=== PATIENT | male | born 1980 ===

== ENCOUNTER 2024-06-03 14:35 | Inpatient (IN) | payer MEDICARE, OTHER ==
[~2024-06-03] VITALS: Ht 175.3 cm; Wt 62.0 kg
[2024-06-03] MEDS ORDERED: DiphenhydrAMINE HCl 50 MG Cap PO PRN (19:35)
[2024-06-03] MEDS ORDERED: Calcium Carbonate 500 MG Tab Chew PO PRN (19:35)
[2024-06-03] MEDS ORDERED: Aluminum Hydroxide 320MG/5ML 473 ML PO PRN (19:35)
[2024-06-03] MEDS ORDERED: DiphenhydrAMINE HCl 50 MG/ML 1ML Vial IM PRN (19:35)
[2024-06-03] MEDS ORDERED: Acetaminophen 325 MG TABLET PO PRN (19:35)
[2024-06-03] MEDS ORDERED: Haloperidol 5 MG Tab PO PRN (19:40)
[2024-06-03] MEDS ORDERED: Ibuprofen 600 MG Tab PO PRN (19:40)
[2024-06-03] MEDS ORDERED: LORazepam 2 MG/ML 1ML Injection IM PRN (19:40)
[2024-06-03] MEDS ORDERED: LORazepam 2 MG Tab PO PRN (19:40)
[2024-06-03] MEDS ORDERED: Haloperidol Lactate Inj. 5 MG/ML Injection IM PRN (19:40)
[2024-06-03] MEDS ORDERED: Melatonin 3 MG Tab PO PRN (19:45)
[2024-06-03] MEDS ORDERED: TraZODone HCl 50 MG Tab PO PRN (19:45)
[2024-06-03] MEDS ORDERED: OLANZapine ODT 10 MG Tab MM PRN (19:45)
[2024-06-03] MEDS ORDERED: Polyethylene Glycol 3350 17 gm PO PRN (19:45)
[2024-06-03] MEDS ORDERED: OLANZapine 10 MG Tab PO SCH (21:00)
[2024-06-04] MEDS ORDERED: Multivitamins 1 Tab PO SCH (09:00)
[2024-06-04 12:45] VITALS: BP 124/84
--- NOTE | 2024-06-04 13:16 | NUR ---
ADMISSION NOTE: PT TO UNIT FROM [facility] IN [place] AT 1142. COOPERATIVE WITH ALL INSTRUCTIONS. NOTED SIGNIFICANT SKIN ABRASIONS AND SCRATCHES FROM BEING IN BLACKBERRY BUSHES PRIOR TO ADMIT. PT STATES HE HAS HISTORY OF TBI AND HAS HAD MENTAL HEALTH SYMPTOMS EVER SINCE. STATES HISTORY OF FREQUENT ADMITS TO BEHAVIORAL HEALTH UNITS FOR PSYCHOTIC BREAKS OR TO SEEK TREATMENT FOR "THE VOICES IN MY HEAD." PT STATES HE HAS MULTIPLE FELONY CHARGES PENDING AND THAT HE IS SUPPOSED TO GO TO [facility]P ONCE HE LEAVES HERE. HE IS UNABLE TO CLARIFY WHAT THE CHARGES WOULD BE RELATED TO. RECORDS FROM [place] STATE THERE ARE NO CHARGES PENDING AND THAT THESE THOUGHTS ARE PART OF HIS PARANOIA/DELUSIONS. PT STATES RECENT STRESSORS INCLUDE FINDING OUT HIS GIRLFRIEND IS "ACTUALLY WITH MY BROTHER AND HAS BEEN FOR 6 YEARS." STATES THE VOICES TOLD HIM TO KILL HIMSELF AND "DARED ME TO DO IT. THEY SAID I WOULDN'T SO I SHOWED THEM I COULD." STATES HE ATTEMPTED TO SWALLOW A BOTTLE OF PILLS BUT VOMITED THEM BACK UP, THEN TRIED TO HANG SELF IN SHOWER BUT THE SHOWER BAR BROKE. HE THEN WENT TO BEDROOM TO HANG SELF IN CLOSET BUT HIS GIRLFRIEND FOUND HIM AND STOPPED HIM. HE SAID HE HAS NO DESIRE TO KILL HIMSELF BUT THAT THE VOICES CONTINUALLY TELL HIM TO DO SO. STATES HE HEARS THE VOICES ALL DAY. ALSO C/O VISUAL HALLUCINATIONS AND SEES SHADOWS. "I CALL THEM THE SHADOW PEOPLE." FEELS PEOPLE TOUCHING HIM FREQUENTLY WHO AREN'T THERE WELL. PT STATES HE DRINKS 4-6 24 OZ BEERS PER DAY "BUT IT'S PROBABLY MORE THAN THAT MOST OF THE TIME. SLIGHT TREMORS NOTED. HR 100 DURING ASSESSMENT. DENIES ANY OTHER SIGNS OF WITHDRAWAL. VS EVALUATED. NO CURRENT PLANS FOR SELF HARM. DENIES ANY HOMICIDAL THOUGHTS. FOLLOWS ALL DIRECTIONS AND IS COOPERATIVE WITH STAFF. PLAN FOR 15 MIN CHECKS AND TO SUPPORT NEEDS.
[2024-06-04] MEDS ORDERED: HYDPAM50 PO (13:28)
[2024-06-04] MEDS ORDERED: OMEP20ER PO (13:29)
[2024-06-04] MEDS ORDERED: GABA300 PO (13:29)
[2024-06-04] MEDS ORDERED: DULO30 PO (13:30)
[2024-06-04] MEDS ORDERED: ABILIFY MYCITE5 M2 PO (13:30)
[2024-06-04] MEDS ORDERED: ONDA4 PO (13:40)
[2024-06-04] MEDS ORDERED: Ondansetron 4 MG SoluTab MM PRN (13:55)
[2024-06-04] MEDS ORDERED: HydrOXYzine Pamoate 50 MG Cap PO PRN (13:55)
[2024-06-04] MEDS ORDERED: ESOM20 PO (14:18)
[2024-06-04] MEDS ORDERED: Nicotine 21 MG PATCH TOP ONE (14:50)
[2024-06-04] MEDS ORDERED: ALBU90OI INH (15:26)
--- NOTE | 2024-06-04 15:27 | NUR ---
SPOKE WITH [facility] IN [place] TO RECONCILE MEDICATIONS. UPDATED LIST PER PHARMACY DISPENSING HISTORY. THEY STATED PT HAS NOT FILLED HIS PRESCRIPTIONS SINCE 02/19/25.
--- NOTE | 2024-06-04 16:56 | NUR ---
PT TO NURSES STATION. REQUESTED VISTARIL FOR ANXIETY AND IBUPROFEN FOR BACK PAIN. STATES THAT HE IS HAVING FEELINGS OF INCREASED ANXIETY R/T THOUGHTS OF WHAT HAS BEEN GOING ON IN HIS LIFE. PT MEDICATED PER EMAR.
--- NOTE | 2024-06-04 17:29 | NUR ---
SHIFT SUMMARY: PT HAS SETTLED ONTO UNIT WELL. COOPERATIVE WITH TREATMENT PLAN. HAS PARTICIPATED IN ACTIVITIES. PT SPENDS MAJORITY OF TIME IN HALLWAYS WALKING AND VISITING WITH STAFF. CONT TO C/O PAIN TO RIGHT LEG - CHRONIC ISSUE. TAKES IBUPROFEN, TYLENOL, AND GABAPENTIN FOR THIS AT HOME. PT STATES VISTARIL WORKED WELL FOR CONTROLLING ANXIETY EARLIER THIS SHIFT. SPOKE ON PHONE TO GIRLFRIEND - APPEARED AGITATED DURING CONVERSATION BUT DENIES THIS WHEN ASKED AFTER PHONE CALL. CONTINUE 15 MIN CHECKS AND FACILITATE THERAPEUTIC CONVERSATIONS.
[2024-06-04] MEDS ORDERED: Lidocaine 4% 1 Patch TOP SCH (20:10)
[2024-06-04 20:13] VITALS: BP 134/97
[2024-06-04] MEDS ORDERED: Gabapentin 400 MG Cap PO SCH (21:00)
--- NOTE | 2024-06-05 05:25 | NUR ---
SHIFT SUMMARY NO ACUTE EVENTS THIS SHIFT. PT AT START OF SHIFT PACING HALLWAYS, STATING, "MY BACK HURTS IF I SIT TOO LONG.". LIDOCAINE PATCH ORDERED AND PT HAS SLEPT/RESTED FOR REST OF NIGHT. PT DENIES SI, HI, AND VISUAL/TACTILE HALLUCINATIONS. CONFIRMS AUDITORY HALLUCINATIONS AND ALSO CONFIRMS THEY ARE COMMAND HALLUCINATIONS TELLING HIM TO "KILL MYSELF". PT CONFIRMS THAT HE KNOW'S THAT THEY AREN'T REAL AND SHOULDN'T LISTEN TO THEM, BUT ALSO STATED PREVIOUSLY THEY ARE THE CAUSE OF HIS PREVIOUS ATTEMPT.
[2024-06-05] MEDS ORDERED: Pantoprazole Sodium 40 MG Tab PO SCH (06:00)
[2024-06-05 07:22] VITALS: BP 121/79
[2024-06-05] MEDS ORDERED: Nicotine 21 MG PATCH TOP SCH (09:00)
[2024-06-05 09:33] LABS: Albumin, Blood 3.4 g/dL (3.4-5.0); Albumin/Globulin Ratio 0.9 (0.8-1.8); Bilirubin, Total 0.3 mg/dL (0.1-1.0); Bun/Creatinine Ratio 23.5 (12.0-20.0); Calcium, Blood 8.9 mg/dL (8.5-10.1); Creatinine, Blood 0.72 mg/dL (0.60-1.20); Globulin, Blood 3.6 g/dL (2.2-4.0); Potassium, Blood 4.2 mmol/L (3.5-5.5); Thyroid Stimulating Hormone 0.69 uIU/mL (0.360-4.800)
--- NOTE | 2024-06-05 11:19 | NUR ---
PHONE CONSULT WITH DR RICARDO PER ORDER - SHE INCREASED GABAPENTIN TO PTS REGULAR DOSE OF 900 MG TID AFTER HISTORY REVIEW AND RX REVIEW.
[2024-06-05] MEDS ORDERED: Gabapentin 300 MG Cap PO SCH (14:00)
--- NOTE | 2024-06-05 16:52 | NUR ---
SHIFT SUMMARY: PT DENIES HI BUT STATES VOICES CONTINUE TO TELL HIM TO KILL HIMSELF. HE IS ABLE TO DISTRACT HIMSELF FROM VOICES WITH ACTIVITIES. INCREASED GABAPENTIN DOSING IS HELPING PAIN TO LOW BACK AND LEG. PARTICIPATED IN ACTIVITIES TODAY. RESPONDS APPROPRIATELY TO REQUESTS AND IS ABLE TO HOLD APPROPRIATE CONVERSATIONS WITH STAFF. FREQUENT WALKS IN GARCIA FOR POSITION CHANGING RELATED TO BACK DISCOMFORT.
[2024-06-05 19:51] VITALS: BP 122/93
[2024-06-05] MEDS ORDERED: ChlordiazePOXIDE 25 MG Cap PO SCH (21:00)
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
[2024-06-06 07:20] LABS: Magnesium, Blood 2.1 mg/dL (1.6-2.4); Phosphorus, Blood 4.5 mg/dL (2.5-4.9)
[2024-06-06 07:23] LABS: CHOL/HDL RATIO 1.7; Cholesterol 176 mg/dL (50-200); HDL Cholesterol 104 mg/dL (>39); LDL/HDL RATIO 0.5; Low Density Lipoprotein Chol 49 mg/dL (0-110); Triglycerides 114 mg/dL (30-160); Very Low Density Lipoprot Chol 22 mg/dL (6-32)
[2024-06-06 07:55] VITALS: BP 114/78
[2024-06-06] MEDS ORDERED: Thiamine HCl 100 MG Tab PO SCH (09:00)
--- NOTE | 2024-06-06 14:44 | NUR ---
THIS RN REACHED OUT TO [facility] IN [place] [place] AT 1100 TO VERIFY GABAPENTIN PRESCRIPTION. PHARMACIST SAID THE PRESCRIPTION IS THREE 400 MG TABS. RN ASKED FOR CLAIM HISTORY TO BE FAXED TO [facility]. PHARMACIST VERBALIZED THAT HISTORY WOULD BE FAXED. FAX NOT RECEIVED AT THIS TIME. RN CALLED BACK AT 1440 DUE TO FAX NOT BEING RECEIVED. UNABLE TO REACH PHARMACIST AT THIS TIME.
--- NOTE | 2024-06-06 17:08 | NUR ---
SHIFT SUMMARY PT A/O X4 AND COOPERATIVE WITH PLAN OF CARE. HE DENIES SI AND HI BUT ENDORSES AH AND TH. AH COMMANDS PT TO "KILL HIMSELF" BUT HE IS ABLE TO IGNORE THEM AND OFTEN WALKS TO HELP WITH THIS. HE SAYS THAT SOMETIMES HE FEEL "SOMEONE TUGGING ON HIS FOOT" WHILE SLEEPING. PT MEDICATED WITH IBUPROFEN, TYLENOL, AND LIDOCAINE PATCH FOR PAIN. HE HAS PAIN TO R HIP AND KNEE. HE RECEIVED SCHEDULED GABAPENTIN FOR PAIN WELL. GABAPENTIN DOSE VERIFIED WITH [facility]. PT ALSO C/O ABSCESS ON HIS GUM. DENTAL HYGIENIST NOTIFIED AND RECOMMENDED ABX. HOSPITALIST MADE AWARE OF DENTIAL HYGIENIST RECOMMENDATION.
[2024-06-06 19:56] VITALS: BP 135/80
[2024-06-06] MEDS ORDERED: Lactobacil 2-S.Thermo-Bifido 1 1 Cap PO SCH (21:00)
[2024-06-06] MEDS ORDERED: ChlordiazePOXIDE 25 MG Cap PO SCH (21:00)
[2024-06-06] MEDS ORDERED: Amoxicillin/Clavulanate K 875 MG Tab PO SCH (21:00)
[2024-06-06] MEDS ORDERED: Gabapentin 400 MG Cap PO SCH (21:00)
--- NOTE | 2024-06-07 04:14 | NUR ---
SHIFT SUMMARY: PATIENT WAS PACING THE HALLWAY AT THE BEGINNING OF THE SHIFT. HE WAS PLEASANT AND COOPERATIVE WITH CARES. HE ANSWERED QUESTIONS IN A CALM AND LINEAR MANNER. HE DENIED THOUGHTS OF SUICIDAL IDEATION OR SELF HARMING. HE PARTICIPATED IN 2000 SNACK TIME AND WRAP UP GROUP IN THE DINING AREA. HE WAS COMPLIANT WITH MEDICATION ADMINISTRATION. HE REQUESTED AND WAS GIVEN TYLENOL, AND LATER IBUPROFEN AND TRAZODONE. HE WENT TO BED AFTER THESE REQUESTS, AND WAS NOTED TO BE RESTING QUIETLY WITH EYES CLOSED AND RESPIRATIONS CONFIRMED. CONTINUING TO MONITOR FOR SAFETY WITH Q15 MINUTE CHECKS.
[2024-06-07 08:04] VITALS: BP 124/89
[2024-06-07 08:21] LABS: Magnesium, Blood 2.2 mg/dL (1.6-2.4); Phosphorus, Blood 4.7 mg/dL (2.5-4.9)
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
--- NOTE | 2024-06-07 17:48 | NUR ---
PT REPORTED THAT HE WASN'T HONEST WITH STAFF AND PROVIDER THE LAST FEW DAYS ABOUT THE VOICES AND THEIR COMMANDS. HE REPORTS NOT KNOWING IF THE VOICES ARE REAL OR NOT. HE HAS BEEN VERY VISIBLE IN GROUPS AND WALKING IN THE GARCIA TODAY. HE WAS GIVEN OLANZAPINE 10MG AT 17:43, PROVIDER NOTIFIED.
--- NOTE | 2024-06-07 18:00 | NUR ---
PT WAS DIRECTED TO BE VERY HONEST WITH STAFF AND PROVIDER ABOUT WHAT HE IS FEELING AND EXPERIENCING. PT AGREED THAT HE WOULD BE HONEST.
[2024-06-07 21:04] VITALS: BP 127/86
--- NOTE | 2024-06-08 04:06 | NUR ---
SHIFT SUMMARY: PATIENT WAS IN THE MILIEU PACING AT THE BEGINNING OF THE SHIFT. HE WAS ABLE TO COMMUNICATE APPROPRIATELY WITH STAFF AND PEERS. HE WAS PLEASANT AND COOPERATIVE WITH CARES. HE DENIED THOUGHTS OF SUICIDAL IDEATION OR SELF HARMING. HE ADMITTED TO "SOME ANXIETY" BUT STATED, "WHEN THAT HAPPENS, I WALK IT OFF." HE C/O PAIN TO RIGHT LEG AND REQUESTED AND WAS GIVEN IBUPROFEN AND TYLENOL, WHICH BROUGHT SOME RELIEF. HE STATED, "I'M TOUGH. I CAN HANDLE A LOT OF PAIN. I HAVE IT ALL THE TIME." HE PARTICIPATED IN SNACK AND WRAP UP TIME AT 1999. HE WAS COMPLIANT WITH EVENING MEDICATION ADMINISTRATION. HE WENT TO BED AFTER SNACK TIME AND WAS NOTED TO BE RESTING QUIETLY WITH EYES CLOSED AND RESPIRATIONS CONFIRMED FOR THE REMAINDER OF THE SHIFT. CONTINUING TO MONITOR FOR SAFETY WITH Q15 MINUTE CHECKS.
[2024-06-08 07:18] LABS: Phosphorus, Blood 4.2 mg/dL (2.5-4.9)
[2024-06-08 08:05] VITALS: BP 122/89
--- NOTE | 2024-06-08 11:39 | NUR ---
"Spiritual Care Visit | Pt. Request Pt. meets with me in a copnsult room where we welcome one aanother. Pt. is pleasant and respectful. Facilitaed a lengthy life review where the Pt. unpack many details of why he often feels he has no way out. Listen with empathy and a calming presence. Pt. verbalizes also how he is seeking to walk a path of alexey noting he was baptized and is reading his bible. Pt. verbalized that he had a good relationship with a latter day riveter in [place]. Pastoral care and cemetery counselor is given. Pt. displayed evience of listening and agreement. Prayed for the Pt. Pt. verbalized gratitude for the spiritual care visit."
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
[2024-06-08] MEDS ORDERED: Lidocaine 4% 1 Patch TOP ONE (20:30)
[2024-06-08 20:45] VITALS: BP 118/84
[2024-06-08] MEDS ORDERED: RisperiDONE 1 MG Tab PO SCH (21:00)
[2024-06-08] MEDS ORDERED: ChlordiazePOXIDE 10 MG Cap PO SCH (21:00)
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
[2024-06-09 07:55] VITALS: BP 122/90
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
[2024-06-09] MEDS ORDERED: Lidocaine 4% 1 Patch TOP SCH (21:00)
[2024-06-09 21:39] VITALS: BP 131/92
--- NOTE | 2024-06-10 05:15 | NUR ---
SHIFT SUMMARY NO ACUTE EVENTS OVERNIGHT. PT DENIES HI, V/T HALLUCINATIONS. ENDORSES SI, BUT STATES BETTER THAN YESTERDAY AND CONTINUES TO DENY ANY PLANS. PT INTERACTING W/ PEERS AND STAFF, WATCHED MOVIE, AND WENT TO SNACKTIME AT START OF SHIFT. PT ALSO CONTINUES TO COMPLAIN OF AUDITORY HALLUCINATIONS THAT TELL HIM TO KILL HIMSELF. SLEPT/RESTED QUIETLY T/O NIGHT. CONTINUES TO HAVE SOME PAIN IN RIGHT LEG, TREATING PER EMAR.
[2024-06-10 08:08] VITALS: BP 124/85
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
[2024-06-10 22:04] VITALS: BP 132/94
--- NOTE | 2024-06-11 05:07 | NUR ---
SHIFT SUMMARY NO ACUTE EVENTS OVERNIGHT. DENIES SI, HI, AND V/T HALLUCINATIONS. ENDORSES AUDTITORY HALLUCINATIONS, BUT STATES THEY ARE NOW JUST "WHISPERS". STATES, "I'M DOING SO MUCH BETTER THAN LAST WEEK.". AND EXPRESSES EXCITEMENT ABOUT POSSIBLE DISCHARGE SOON. GOAL ORIENTED AND DISCUSSED ABOUT HIS PLANS ONCE HE GOES HOME. WENT TO SNACKTIME AND INTERACTED W/ PEERS. SLEPT/RESTED QUIETLY FOR MOST OF NIGHT.
--- NOTE | 2024-06-11 05:25 | NUR ---
IMPORTANT DISCHARGE INFORMATION HIS TRANPORTATION WILL NEED TO BE CALLED AT LEAST 24 HRS PRIOR TO DISCHARGE PATIENT BELONGS TO THE [facility]. THEY WILL PICK HIM UP AT DISCHARGE AND HE WILL HAVE FOLLOW UP PCP/MENTAL HEALTH SERVICES AT THE [facility] HIS PHARMACY IS ALSO WITH THE [facility]
[2024-06-11 08:10] VITALS: BP 127/83
--- NOTE | 2024-06-11 17:03 | NUR ---
SHIFT [facility] PT HAS BEEN UP ALL SHIFT, ACTIVE IN THE MILIEU, ATTENDING ALL GROUPS, MEALS AND SNACKS. HE HAS DENIES SI/HI BUT STATES A SLIGHT BUZZING SOUND IN HIS HEAD. HE STS HE IS FEELING "FANTASTIC" NOW THAT HE IS BACK ON HIS MEDICATION. PT HAS SPENT MOST OF HIS DAY WALKING THE HALLWAY, HE IS PROUD OF THE NUMBER OF "LAPS" HE HAS COMPLETED TODAY, IT'S 150 STEPS WHEN MAKING A LAP. HE HAS DENIED PAIN TO THE RLE TODAY. PLAN TO DC ON TUESDAY PER PROVIDER. HE IS VERY HAPPY ABOUT THAT. PT HAS CONTINUED TO RECEIVE Q15 MIN SAFETY CHECKS THROUGHOUT THE DAY
[2024-06-11 20:00] VITALS: BP 121/82
--- NOTE | 2024-06-12 04:53 | NUR ---
SHIFT SUMMARY: ASSUMED CARE FROM PRIOR SHIFT. PATIENT IS A/OX4, ABLE TO VOICE NEEDS AND HAVE MEANINGFUL CONVERSATION. SHE IS SMILING AND GETTING EXCITED ABOUT DISCHARGE AND MOVING FORWARD. HE IS FEELING "HOPEFUL ABOUT HIS FUTURE". HE DNIES SI, AH AND VH. HE IS COMPLIANT WITH HIS MEDICATIONS AND POC. HE HAS SNACK AND ATTENDS GROUP. HE SOCIALIZING WITH OTHER PATIENTS AND STAFF APPORPRIATELY. HE GOES TO BED WITHOUT ENCOURAGMENT. NO NOTED BEHAVIORS OR ISSUES. CONTINUE WITH 15 MIN CHAECKS FOR SAFETY AND COMFORT.
[2024-06-12 08:05] VITALS: BP 120/83
--- NOTE | 2024-06-12 13:35 | NUR ---
IMPORTANT DISCHARGE TRANSPORTATION INFORMATION Patient to be picked up by significant other and nondenominational member on 06/13 at or around noon. Hospital discharge appointments unable to be scheduled at this time. [facility] states patient is not under their care
--- NOTE | 2024-06-12 15:08 | NUR ---
Spiritual Care Consult | Ordered by Daphne Blake Met with the Pt. at the Pts. request. Pt. is knonw to this ventilator specialist from [facility] to [facility]. Pt. verbalizes matters of great encouragement at home, as well as an expectation that he would be discharged soon. Pt. displayed evidence of low anxiety and verbalized his confidance that his meds are balancing him out. Facilitated some discussion about a SPiritual Care plan upon discharge. Pt. responded with agreement. Prayed fo rthe Pt. Pt. verbalized graitude and that "I needed this" time with the Tobacco Shaker.
[2024-06-12] MEDS ORDERED: GABA400 PO (16:14)
[2024-06-12] MEDS ORDERED: MELATONIN3 M1 PO (16:15)
[2024-06-12] MEDS ORDERED: RISP4 PO (16:19)
--- NOTE | 2024-06-12 17:57 | NUR ---
SHIFT SUMMARY PT A/O X4; PLEASANT AND COOPERATIVE WITH CARE. HE DENIES SI AND HI. HE C/O SOME "WHISPER" HALLUCINATIONS BUT UTILIZES COPING SKILLS TO HELP. PT SAYS THAT HE FEELS THAT GOING TO GROUP HAS REALLY HELPED HIM TO DEVELOP SOME USEFUL COPING SKILLS. HE C/O CHRONIC PAIN TO R LEG AND LOWER BACK. TREATED PER EMR FOR PAIN. PT TO DISCHARGE HOME TOMORROW AND HIS RIDE IS SCHEDULED TO ARRIVE AT AROUND 1300. MEDICATIONS NEED CALLED/FAXED TO [facility]. PHARMACY OPENS AT 1200 ON 06/13/24.
[2024-06-12 20:00] VITALS: BP 128/94
--- NOTE | 2024-06-13 04:10 | NUR ---
SHIFT SUMMARY PT PRESENT IN MILIEU AT START OF SHIFT. HE DENIES ANY SI, HI OR THOUGHTS OF SELF HARM. HE REPORTS AUDITORY HALLUCINATIONS, BUT STATES THEY ARE WHISPERS AND HE IS ABLE TO CONTROL THEM. PT REPORTS HE FEELS EXCITED TO BE GOING HOME. PT HAD EVENING SNACK, WAS COMPLIANT WITH MEDICATIONS AND RECEIVED PRN TRAZODONE AND MELATONIN. PT SLEPT UNTIL APPROXIMATELY 0230 AND PRESENTED TO NURSES STATION WITH C/O RIGHT LEG PAIN AND BACK PAIN RATED AT 7/10. PT RECEIVED PRN TYLENOL AND IBUPROFEN. PT CURRENTLY RESTING IN BED. Q15 MINUTE CHECKS TO CONTINUE.
[2024-06-13 08:07] VITALS: BP 126/80
--- NOTE | 2024-06-13 09:40 | NUR ---
SHIFT ASSESSMENT: PT DENIED SI AND HI, HE ENDORSED AUDITORY HALLUCINATIONS, "THEY ARE JUST WHISPERS NOW, TELLING ME TO KILL MYSELF BUT I CAN IGNORE THEM." HE RATED HIS LOW BACK AND RT LEG PAIN 6/10w AND WAS GIVEN TYLENOL 650MG AND ADVIL 600MG AT 09:20. PT IS IN GOOD HUMOR, "GREAT, EXCITED, ANXIOUS!" HE REPORTED A BIT OF ANXIETY RELATED TO DISCHARGING TODAY. PT IS COOPERATIVE AND PLEASANT, HE ATTENDED MORNING GROUPS AND IS PRESENTLY WALKING THE GARCIA.
--- NOTE | 2024-06-13 12:48 | NUR ---
11:38 PT DISCHARGED WITH HIS DISCHARGE INSTRUCTIONS AND ALL OF HIS BELONGINGS. PT WAS EXCITED TO LEAVE AND WAS PICKED UP BY HIS FIANCE'. RX FAXED TO [facility] IN [place] PER HIS REQUEST, "IT'S JUST AROUND THE CORNER FROM ME." PT REPORTED, "I'M STAYING ON MY MEDS!" PT WAS REMINDED TO ABSTAIN FROM ALCOHOL USE.
== END 2024-06-13 11:38 | disposition home or self-care (01) | DRG 885 ==
LOC: BHU 14:35
PROVIDERS: ADMIT Student in an Organized Health Care Education/Training Program
DX: F20.0 Paranoid schizophrenia (principal); F15.20 Other stimulant dependence, uncomplicated; R45.851 Suicidal ideations; G62.0 Drug-induced polyneuropathy; Z98.890 Other specified postprocedural states; F17.210 Nicotine dependence, cigarettes, uncomplicated; F12.10 Cannabis abuse, uncomplicated; F10.20 Alcohol dependence, uncomplicated; K04.7 Periapical abscess without sinus; T42.6X1A Poisoning by other antiepileptic and sedative-hypnotic drugs, accidental (unintentional), initial encounter; Z91.138 Patient's unintentional underdosing of medication regimen for other reason; Z88.8 Allergy status to other drugs, medicaments and biological substances; Z79.899 Other long term (current) drug therapy; Z79.51 Long term (current) use of inhaled steroids; Z79.1 Long term (current) use of non-steroidal anti-inflammatories (NSAID); X58.XXXA Exposure to other specified factors, initial encounter
CPT/HCPCS: 36415; 80053; 80061; 83036; 83735; 84100; 84443; 86592; A9270